=== PATIENT | female | born 1980 | race Two or more races ===

== ENCOUNTER 2024-03-09 18:42 | Emergency (ER) | payer OTHER ==
[~2024-03-09] VITALS: Ht 154.9 cm; Wt 59.0 kg
[2024-03-09 18:56] VITALS: BP 128/86; O2SAT 96
[2024-03-09 19:39] LABS: HEMATOCRIT 37.6 % (36.0-45.00); MEAN CELL VOLUME 89.6 fL (80.00-100.00); MEAN CORPUSCULAR HEMOGLOBIN 30.9 pg (27.00-32.0); MEAN CORPUSCULAR HGB CONC 34.5 g/dl (32.0-36.0); PLATELET COUNT 197 K/uL (150-450); RED BLOOD COUNT 4.19 M/uL (4.00-6.00); RED CELL DISTRIBUTION WIDTH 13.3 % (11.5-14.5)
[2024-03-09] MEDS ORDERED: IBUprofen 100 MG/5 ML-120ML ML PO STA (20:09)
[2024-03-09] MEDS ORDERED: CEFTRIAXONE SODIUM 1,000 MG VIAL IM STA (20:09)
== END 2024-03-09 20:53 | disposition home or self-care (01) ==
LOC: ER 18:43
PROVIDERS: General Practice
DX: J06.9 Acute upper respiratory infection, unspecified (principal); Z20.822 Contact with and (suspected) exposure to COVID-19